=== PATIENT | female | born 2000 | race Caucasian/White ===

== ENCOUNTER 2021-09-03 10:04 | Day surgery (SDC) | payer OTHER ==
[2021-09-02 11:38] LABS: COVID AG,FIA SOURCE NASAL SWAB
[~2021-09-03] VITALS: Ht 161.3 cm; Wt 45.5 kg
[~2021-09-03 10:04] MED LIST: SODIUM CHLORIDE 0.9% 1,000 ML IV ONE; SODIUM CHLORIDE 0.9% 1,000 ML ONE
[2021-09-03] MEDS ORDERED: PROPOFOL 1% 20 ML VIAL IVP ONE (10:05)
== END 2021-09-03 14:30 | disposition home or self-care (01) ==
LOC: SURGERY 10:04
PROVIDERS: ATTEND Internal Medicine Gastroenterology
DX: K52.9 Noninfective gastroenteritis and colitis, unspecified (principal); K64.0 First degree hemorrhoids; E03.9 Hypothyroidism, unspecified; Z98.890 Other specified postprocedural states; Z79.899 Other long term (current) drug therapy
CPT/HCPCS: 45380; 84703; 87426; 88305; C9803; J2704; J7030